=== PATIENT | female | born 1995 | race Caucasian/White ===

== ENCOUNTER → 2019-02-14 | Outpatient (CLI) | payer OTHER ==
--- NOTE | 2019-02-14 15:01 | US ---
EXAMINATION TYPE: US thyroid st tissue head/neck DATE OF EXAM: 02/14/2019 COMPARISON: NONE CLINICAL HISTORY: E03.9 Hypothyroidism. No previous US GLAND SIZE: Right Lobe: 4.5 x 1.3 x 1.3 cm Overall Parenchyma: homogenous Left Lobe: 3.3 x 1.2 x 1.2 cm Overall Parenchyma: homogeneous Isthmus Thickness: 0.2 cm NODULES RIGHT: # of nodules measured on right: 1 1. 0.3 X 0.3 x 0.2 cm hypoechoic nodule at the medial pole with well-defined margins. This nodule is wider than tall and shows no intranodular vascularity. Prior size: No prior LEFT: # of nodules measured on left: 1 1. 0.3 X 0.2 x 0.2 cm cystic nodule at the mid pole with well-defined margins. This nodule is tall as wide and shows no intranodular vascularity. Prior size: No prior ISTHMUS: # of nodules measured in the isthmus: 0 Bilateral neck scanned, no evidence of lymphadenopathy. IMPRESSION: Sub-3 mm thyroid nodules. Surveillance ultrasound could be considered in 12 months.
== END | disposition home or self-care (01) ==
LOC: RADUSWWP 14:04
PROVIDERS: ATTEND Family Medicine
DX: E04.2 Nontoxic multinodular goiter (principal); E03.9 Hypothyroidism, unspecified
CPT/HCPCS: 76536

== ENCOUNTER 2021-03-04 20:32 | Emergency (ER) | payer OTHER ==
[2021-03-04] MEDS ORDERED: KETOROLAC 15 MG/ML 1 ML VIAL IVP STA (21:23)
[2021-03-04] MEDS ORDERED: SODIUM CHLORIDE 0.9% 1,000 ML IV ONE (21:23)
--- NOTE | 2021-03-04 21:26 | ED ---
General Adult HPI - General Chief complaint: Urogenital Stated complaint: Female Time Seen by Provider: 03/04/21 21:14 Source: patient, RN notes reviewed, old records reviewed Mode of arrival: ambulatory Limitations: no limitations - History of Present Illness Initial comments: 25-year-old anxioius white female, alert and oriented 4, presents to the emergency room with concerns for toxic shock syndrome. Patient states that on Wednesday she was driving a long distance and put a tampon in and it was in for over 8 hours. She states that she tried to pull the tampon out and it was dry and uncomfortable. She has since had some dysuria. Her mother told it could be toxic shock syndrome. Patient states that she has now developed a headache however she does have a history of migraine headaches and this does feel similar. She denies any fevers, nausea vomiting or diarrhea. -: days(s) (2) Location: head Radiation: non-radiation Severity scale (1-10): 4 Quality: aching, other Consistency: constant (Throbbing) Improves with: none Worsens with: other (Lites) Associated Symptoms: denies other symptoms Treatments Prior to Arrival: none - Related Data Previous Rx's Medication Instructions Recorded Cephalexin [Keflex] 500 mg PO BID 7 Days #14 cap 03/04/21 Allergies Allergy/AdvReac Type Severity Reaction Status Date / Time No Known Allergies Allergy Verified 03/04/21 22:15 Review of Systems ROS Statement: Those systems with pertinent positive or pertinent negative responses have been documented in the HPI. ROS Other: All systems not noted in ROS Statement are negative. Past Medical History Past Medical History: No Reported History History of Any Multi-Drug Resistant Organisms: None Reported Past Surgical History: No Surgical Hx Reported Past Psychological History: No Psychological Hx Reported Smoking Status: Never smoker Past Alcohol Use History: None Reported Past Drug Use History: None Reported General Exam Limitations: no limitations General appearance: alert, in no apparent distress Head exam: Present: atraumatic, normocephalic, normal inspection Eye exam: Present: normal appearance, PERRL, EOMI. Absent: scleral icterus, conjunctival injection, periorbital swelling ENT exam: Present: normal exam, normal oropharynx, mucous membranes moist Neck exam: Present: normal inspection, full ROM. Absent: tenderness, meningismus, lymphadenopathy Respiratory exam: Present: normal lung sounds bilaterally. Absent: respiratory distress, wheezes, rales, rhonchi, stridor, decreased breath sounds Cardiovascular Exam: Present: normal rhythm, tachycardia, normal heart sounds. Absent: systolic murmur, diastolic murmur, rubs, gallop, clicks GI/Abdominal exam: Present: soft, normal bowel sounds. Absent: distended, tenderness, guarding, rebound, rigid Extremities exam: Present: normal inspection, full ROM, normal capillary refill. Absent: tenderness, pedal edema, joint swelling, calf tenderness Back exam: Present: full ROM. Absent: tenderness, CVA tenderness (R), CVA tenderness (L), muscle spasm, paraspinal tenderness, vertebral tenderness Neurological exam: Present: alert, oriented X3, CN II-XII intact Psychiatric exam: Present: anxious Skin exam: Present: warm, dry, intact, normal color. Absent: rash, cyanosis, diaphoretic, petechiae, pallor Course Vital Signs 03/04/21 20:44 Temperature 98.9 F Pulse Rate 118 H Respiratory 19 Rate Blood Pressure 138/92 O2 Sat by Pulse 98 Oximetry - Reevaluation(s) Reevaluation #1: 03/04/21 23:15 Patient continues to have headache but has not gotten her medications yet will reassess after medications given Time: 23:15 Medical Decision Making - Medical Decision Making Patient presents with headache and concerns for toxic shock syndrome. She states that she has a tampon in for 8 hours and was concerned because she developed a headache and dysuria. She has a WBC count of 13.5, UA is cloudy with small blood, large leukocyte esterase, WBC 38 with rare bacteria. Her Covid test is negative. Patient was given 1 L normal saline with Toradol for her headache and 1 g of Rocephin for urinary tract infection. She was called in a prescription for antibiotics and directed to follow up with her primary care doctor. Patient states she is feeling better, she has tolerated oral fluids prior to d/c. Case discussed with Dr. Mills - Lab Data Result diagrams: 03/04/21 21:46 Lab Results 03/04/21 03/04/21 03/04/21 Range/Units 20:54 21:46 21:46 WBC 13.5 H (3.8-10.6) k/uL RBC 4.86 (3.80-5.40) m/uL Hgb 13.8 (11.4-16.0) gm/dL Hct 41.8 (34.0-46.0) % MCV 86.1 (80.0-100.0) fL MCH 28.4 (25.0-35.0) pg MCHC 33.0 (31.0-37.0) g/dL RDW 14.5 (11.5-15.5) % Plt Count 398 (150-450) k/uL MPV 7.5 Neutrophils % 69 % Lymphocytes % 19 % Monocytes % 5 % Eosinophils % 6 % Basophils % 0 % Neutrophils # 9.2 H (1.3-7.7) k/uL Lymphocytes # 2.6 (1.0-4.8) k/uL Monocytes # 0.7 (0-1.0) k/uL Eosinophils # 0.8 H (0-0.7) k/uL Basophils # 0.1 (0-0.2) k/uL Urine Color Yellow Urine Appearance Cloudy H (Clear) Urine pH 5.5 (5.0-8.0) Ur Specific [place] 1.025 (1.001-1.035) Urine Protein Trace H (Negative) Urine Glucose (UA) Negative (Negative) Urine Ketones Negative (Negative) Urine Blood Small H (Negative) Urine Nitrite Negative (Negative) Urine Bilirubin Negative (Negative) Urine Urobilinogen <2.0 (<2.0) mg/dL Ur Leukocyte Esterase Large H (Negative) Urine RBC 14 H (0-5) /hpf Urine WBC 38 H (0-5) /hpf Ur Squamous Epith Cells 15 H (0-4) /hpf Urine Bacteria Rare H (None) /hpf Urine Mucus Few H (None) /hpf Coronavirus (PCR) Not Detected (Not Detectd) Disposition Clinical Impression: Urinary tract infection, Headache Disposition: HOME SELF-CARE Condition: Good Instructions (If sedation given, give patient instructions): Urinary Tract Infection in Women (ED) Additional Instructions: Increase her fluid intake and take the antibiotics as prescribed. Follow-up with your primary care doctor next week. Return if any worsening symptoms including increased pain, nausea vomiting or fevers. Prescriptions: Cephalexin [Keflex] 500 mg PO BID 7 Days #14 cap Is patient prescribed a controlled substance at d/c from ED?: No Referrals: Michelle Schneider MD [Primary Care Provider] - 1-2 days Time of Disposition: 23:26
[2021-03-04 21:45] LABS: Appearance,Urine Cloudy (Clear); Bacteria,Urine Rare /hpf; Bilirubin,Urine Negative (Negative); Blood,Urine Small (Negative); Color,Urine Yellow; Glucose,Urine (UA) Negative (Negative); Ketones,Urine Negative (Negative); Leukocyte Esterase,Urine Large (Negative); Mucus,Urine Few /hpf; Nitrite,Urine Negative (Negative); PH, Urine 5.5 (5.0-8.0); Protein,Urine Trace (Negative); RBC,Urine 14 /hpf (0-5); Specific Gravity,Urine 1.025 (1.001-1.035); Squamous Epithelial Cell,Urine 15 /hpf (0-4); Urobilinogen,Urine <2.0 mg/dL (<2.0); WBC,Urine 38 /hpf (0-5)
[2021-03-04 21:54] LABS: Basophils # (A) 0.1 k/uL (0-0.2); Basophils % (A) 0 %; Eosinophils # (A) 0.8 k/uL (0-0.7); Eosinophils % (A) 6 %; HCT 41.8 % (34.0-46.0); HGB 13.8 gm/dL (11.4-16.0); Lymphocytes # (A) 2.6 k/uL (1.0-4.8); Lymphocytes % (A) 19 %; MCH 28.4 pg (25.0-35.0); MCV 86.1 fL (80.0-100.0); Mean Platelet Volume 7.5; Monocytes # (A) 0.7 k/uL (0-1.0); Monocytes % (A) 5 %; Neutrophils # (A) 9.2 k/uL (1.3-7.7); Neutrophils % (A) 69 %; Platelet Count 398 k/uL (150-450); RBC 4.86 m/uL (3.80-5.40); RDW 14.5 % (11.5-15.5); WBC 13.5 k/uL (3.8-10.6)
[2021-03-04] MEDS ORDERED: cefTRIAXone IN SWFI 1,000 MG/10 ML SYRINGE IVP STA (22:15)
[2021-03-05 00:52] VITALS: BP 132/68; PULSE 99; RESP 18; TEMP 99
== END 2021-03-05 00:52 | disposition home or self-care (01) ==
LOC: EC 20:32
DX: N39.0 Urinary tract infection, site not specified (principal); R51.9 Headache, unspecified; Z20.822 Contact with and (suspected) exposure to COVID-19
CPT/HCPCS: 99284; 96374; 96375; 96361 ×2; 36415; 85025; 81001; 87086; 87635; J0696; J1885

== ENCOUNTER → 2021-11-18 | Outpatient (CLI) | payer OTHER ==
[2021-11-18 14:59] VITALS: BP 156/109; PULSE 105; RESP 18; TEMP 98.2
--- NOTE | 2021-11-18 17:11 | P.HPOB ---
History of Present Illness H&P Date: 11/18/21 Chief Complaint: The patient is here for her routine gynecologic exam. This is a 26-year-old G0 with an LMP of 11/07/2021. The patient is here to establish with this office. She has never had a pelvic exam in the past and she states she has never been sexually active in any form. She is without gynecologic complaints. She states her menstrual periods are regular every month lasting 6 days with 2 days of heavier flow. On the heavier days she changes her protection about 4 times per day. She denies any significant menstrual pain. She uses tampons during her menstrual periods. Review of Systems The patient's weight has been stable over the last year. She denies respiratory, cardiac, or G.I. problems. She states she is very nervous and her blood pressure can be effected when she is nervous. She states she was given something for anxiety by her PCP, but she has not been taking it. Past Medical History Past Medical History: Hypertension Additional Past Medical History / Comment(s): PAST [employer] HISTORY: She has never been sexually active and She has no history of STDs. History of Any Multi-Drug Resistant Organisms: None Reported Past Surgical History: No Surgical Hx Reported Past Psychological History: Anxiety, Depression (Denies any significant depression used without depression medication.) Smoking Status: Never smoker Past Alcohol Use History: None Reported Past Drug Use History: Marijuana (Rare marijuana use.) Additional History: She is single and lives with her mother. She currently is not working outside the home or going to school. - Past Family History Mother Family Medical History: Cancer Additional Family Medical History / Comment(s): Breast cancer. Father Family Medical History: Diabetes Mellitus, Myocardial Infarction ([place]) Additional Family Medical History / Comment(s): from an [place]. Paternal grandmother had breast cancer. Medications and Allergies Home Medications Medication Instructions Recorded Confirmed Type No Known Home Medications 11/18/21 11/18/21 History Allergies Allergy/AdvReac Type Severity Reaction Status Date / Time No Known Allergies Allergy Verified 11/18/21 14:45 Exam Vital Signs Temp Pulse Resp BP Pulse Ox 11/18/21 14:54 98.2 F 105 H 18 156/109 98 Intake and Output 11/18/21 11/18/21 11/18/21 06:59 14:59 22:59 Other: Weight 102.058 kg Repeat blood pressure 144/88 after her physical exam. Height 5 feet 4 inches, weight 225 pounds, BMI 38.6. This is a well-developed well-nourished heavyset white female who is alert and oriented times 3 who appears mildly anxious. HEENT: Within normal limits. NECK: Supple without mass or thyromegaly. CHEST AND LUNGS: Clear to auscultation. HEART: Mild tachycardia. Regular rhythm. BREASTS: Are without mass or discharge. AXILLARY EXAM: Negative for adenopathy. BACK: Negative for CVA tenderness. ABDOMEN: Soft, obese, nontender, without palpable masses. PELVIC EXAM: Normal external genitalia. Cervix and vagina appear normal. There is no unusual discharge. There is no evidence of prolapse. The uterus is midposition, nongravid size and nontender. There are no palpable adnexal masses or tenderness. RECTAL EXAM: Deferred. EXTREMITIES: Nontender. IMPRESSION: 1. 26-year-old virginal female with normal gynecologic exam. 2. Elevated blood pressure. PLAN: 1. Pap smear was performed. This will be cytology only. 2. Self breast awareness was discussed with the patient. We have also discussed symptoms associated with inflammatory breast cancer. 3. I have stressed importance of good nutrition, regular exercise and low sodium diet. I recommended that she check her own blood pressure on a regular basis and follow up with her PCP for blood pressure elevations. She is aware of her blood pressure elevation at this time. 4. She states she was prescribed a medication for anxiety, but she does not know the name of the medication. She states she has not been taking it. She states she will resume taking the medication for anxiety as prescribed by her PCP. 5. Osteoporosis prevention was discussed. I have stressed the importance of adequate calcium, vitamin D and regular exercise. Recommended amounts of calcium and vitamin D were also discussed. 6. She has received Covid vaccination. We have discussed the HPV vaccination. She will consider getting this. 7. We have discussed STD prevention. I have recommended limiting sexual partners in her lifetime and if she is sexually active I recommended that she use condoms. She assures me that she has never been sexually active in any way. No STD testing is indicated. She was instructed to make an appointment to see me if she is contemplating sexual activity. We can discuss options for control in that situation. 8. She was advised to return in one year for her annual well woman exam and as needed.
== END ==
LOC: WWCWWP 14:23
PROVIDERS: ATTEND Obstetrics & Gynecology
DX: Z01.419 Encounter for gynecological examination (general) (routine) without abnormal findings (principal); I10 Essential (primary) hypertension; F41.9 Anxiety disorder, unspecified